=== PATIENT | female | born 1990 | race Caucasian/White ===

== ENCOUNTER 2019-07-21 15:07 | Emergency (ER) | payer SELFPAY ==
[2019-07-21] MEDS ORDERED: Dexamethasone 10 MG/ML VIAL ONE (15:59)
== END 2019-07-21 16:06 | disposition home or self-care (01) ==
LOC: ERS 15:07
DX: J02.9 Acute pharyngitis, unspecified (principal); I10 Essential (primary) hypertension; F41.9 Anxiety disorder, unspecified
CPT/HCPCS: 99283; J1100